=== PATIENT | male | born 1960 | race Caucasian/White ===

== ENCOUNTER 2020-09-03 12:00 | Outpatient (CLI) | payer OTHER | END 2020-09-03 23:59 | disposition home or self-care (01) | LOC: STAR 12:00 | PROVIDERS: ATTEND Surgery | DX: Z02.9 Encounter for administrative examinations, unspecified (principal) ==

== ENCOUNTER 2020-09-07 05:54 | Day surgery (SDC) | payer OTHER ==
[~2020-09-07] VITALS: Ht 175.3 cm; Wt 54.2 kg
[2020-09-07] MEDS ORDERED: NO HOME MEDS PER PT (06:17)
[2020-09-07 06:19] VITALS: BP 117/76
[2020-09-07] MEDS ORDERED: LACTATED RINGERS 1,000 ML IV SCH (06:30)
[2020-09-07] MEDS ORDERED: CHLORHEXIDINE 15 ML UDC PO ONE (06:30)
[2020-09-07] MEDS ORDERED: MIDAZOLAM 1 MG/ML, 2ML ONE (06:54)
[2020-09-07] MEDS ORDERED: CEFAZOLIN 1,000 MG ONE ×2 (06:55)
[2020-09-07] MEDS ORDERED: PROPOFOL 10 MG/ML, 20ML ONE (06:55)
[2020-09-07] MEDS ORDERED: LIDOCAINE-MPF 2% ,5ML ONE (06:55)
[2020-09-07] MEDS ORDERED: ROCURONIUM 10MG/ML,5ML ONE (06:55)
[2020-09-07] MEDS ORDERED: ONDANSETRON 2MG/ML, 2ML ONE (06:55)
[2020-09-07] MEDS ORDERED: FENTANYL PF 250 MCG/5ML ONE (06:55)
[2020-09-07] MEDS ORDERED: BUPIVACAINE/PF 0.5% ONE (07:00)
[2020-09-07] MEDS ORDERED: EPINEPHRINE 1 MG/ML, 1ML ONE (07:00)
[2020-09-07] MEDS ORDERED: SUGAMMADEX 200 MG/2 ML IVPush ONE (09:02)
[2020-09-07] MEDS ORDERED: HYDR-2214 PO (09:11)
[2020-09-07] MEDS ORDERED: MEPERIDINE/PF 25MG/ML,1ML ONE (09:27)
[2020-09-07] MEDS ORDERED: FENTANYL PF 100 MCG/2ML ONE (09:44)
[2020-09-07] MEDS ORDERED: OXYcodone 5 MG/5 ML ORAL.SOL UDC ONE (09:45)
[2020-09-07] MEDS: FENTANYL PF 100 MCG/2ML IV PRN ×2 (09:55→10:00)
[2020-09-07] MEDS ORDERED: LABETALOL 5MG/ML, 20ML IV PRN (10:00)
[2020-09-07] MEDS ORDERED: OXYcodone 5 MG/5 ML ORAL.SOL UDC PO PRN (10:00)
[2020-09-07] MEDS ORDERED: HYDROmorphone 1 MG/ML, 1ML INJ IVPush PRN (10:00)
[2020-09-07] MEDS ORDERED: hydrALAzine 20 MG/ML, 1ML IV PRN (10:00)
[2020-09-07] MEDS ORDERED: PROMETHAZINE 25 MG/ML, 1ML IVPush PRN (10:00)
[2020-09-07] MEDS ORDERED: MEPERIDINE/PF 25MG/0.5ML IVPush PRN (10:00)
[2020-09-07] MEDS ORDERED: ONDANSETRON 2MG/ML, 2ML IVPush PRN ×2 (10:00→11:00)
[2020-09-07] MEDS ORDERED: HYDROcodone/APAP 5/325 TABLET ONE (10:50)
[2020-09-07] MEDS ORDERED: OXYcodone/APAP 5/325MG TABLET PO PRN (11:00)
[2020-09-07] MEDS ORDERED: HYDROmorphone 2 MG/ML, 1ML IVPush PRN (11:00)
[2020-09-07] MEDS ORDERED: HYDROcodone/APAP 5/325 TABLET PO PRN (11:00)
[2020-09-07] MEDS ORDERED: morphine SULFATE 10 MG/ML, 1ML IVPush PRN (11:00)
== END 2020-09-07 17:35 | disposition home or self-care (01) ==
LOC: OUT 05:54
PROVIDERS: ATTEND Surgery
DX: K40.20 Bilateral inguinal hernia, without obstruction or gangrene, not specified as recurrent (principal); D17.6 Benign lipomatous neoplasm of spermatic cord; Z20.822 Contact with and (suspected) exposure to COVID-19
CPT/HCPCS: 49650; 64488; C1781; J0171; J0690; J2175; J2250; J2270; J2405; J2704; J3010; J7120; S2900; U0003; U0005